=== PATIENT | female | born 1980 ===

== ENCOUNTER 2019-01-30 12:22 | Outpatient (CLI) | payer OTHER ==
[~2019-01-30] VITALS: Ht 157.5 cm; Wt 65.8 kg
== END 2019-01-31 10:17 | disposition home or self-care (01) ==
LOC: OFIC 805 12:22
DX: K21.0 Gastro-esophageal reflux disease with esophagitis (principal); R49.0 Dysphonia; H81.49 Vertigo of central origin, unspecified ear; H91.8X3 Other specified hearing loss, bilateral